=== PATIENT | male | born 1985 | race Caucasian/White ===

== ENCOUNTER 2017-09-13 12:51 | Emergency (ER) | payer OTHER ==
[~2017-09-13] VITALS: Ht 182.9 cm; Wt 79.4 kg
[2017-09-13] MEDS ORDERED: Mupirocin22 GM TOP (15:25)
[2017-09-13] MEDS ORDERED: NO ROUTINE MEDS (15:48)
== END 2017-09-13 15:45 | disposition home or self-care (01) ==
LOC: ER 12:51
DX: L08.9 Local infection of the skin and subcutaneous tissue, unspecified (principal); F17.200 Nicotine dependence, unspecified, uncomplicated
CPT/HCPCS: 99282